=== PATIENT | female | born 1945 | race Caucasian/White ===

== ENCOUNTER 2023-03-21 13:18 | Emergency (ER) | payer MEDICARE ==
[~2023-03-21] VITALS: Ht 160 cm; Wt 108.9 kg
[2023-03-21 14:01] LABS: BASOPHILS 0.6 % (0-2); EOSINOPHILS 0.4 % (0-6); HEMATOCRIT 34.7 % (35.0-50.0); HEMOGLOBIN 11.9 g/dL (12.0-18.0); LYMPHOCYTES 7.3 % (24-44); MCH 32.7 (27-36); MCHC 34.2 g/dl (30-36); MCV 95.5 fl (81-99); MONOCYTES 2.4 % (0-12); NEUTROPHILS 89.3 % (39-80); PLATELET COUNT 245 K/uL (140-440); RBC 3.63 M/ul (4.3-5.7); RDW 13.5 (10.5-15.0)
[2023-03-21 14:17] LABS: INR 3.46 (0.80-1.30); PROTIME 33.5 Sec (11.2-14.2)
[2023-03-21 15:55] VITALS: BP 203/94
== END 2023-03-21 15:39 | disposition home or self-care (01) ==
LOC: ED 13:18
PROVIDERS: Emergency Medicine
DX: S52.514A Nondisplaced fracture of right radial styloid process, initial encounter for closed fracture (principal); S01.511A Laceration without foreign body of lip, initial encounter; I10 Essential (primary) hypertension; Z79.01 Long term (current) use of anticoagulants; Z88.5 Allergy status to narcotic agent; W10.8XXA Fall (on) (from) other stairs and steps, initial encounter
CPT/HCPCS: 36415; 70450; 72125; 73110; 85025; 85610

== ENCOUNTER 2023-03-24 17:09 | Emergency (ER) | payer MEDICARE ==
[~2023-03-24] VITALS: Ht 160 cm; Wt 111.6 kg
--- OUTSIDE RECORDS SUMMARY | 2023-03-24 17:14 | XMS ---
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 Sebastián has no Care Guidelines for this patient. [place] VISIT COUNT (12 MO.) 2 SNEHAL [facility] [place] [address] TOTAL 3 NOTE: Visits indicate total known visits. ED/UCC VISIT TRACKING (12 MO.) 03/24/2023 17:10 [facility] [place] TYPE: Emergency COMPLAINT: - EXTREMITY PAIN RIGHT ARM 03/21/2023 13:[address] [facility] [place] TYPE: Emergency COMPLAINT: - FALL DIAGNOSES: - Allergy status to narcotic agent - Essential (primary) hypertension - Fall (on) (from) other stairs and steps, initial encounter - Laceration without foreign body of lip, initial encounter - termite exterminator helper (current) use of anticoagulants - Nondisplaced fracture of right radial styloid process, initial encounter for closed fracture - Pain in right wrist 01/10/2023 01:55 [facility] [place] TYPE: Emergency INPATIENT VISIT TRACKING (12 MO.) No inpatient visits to display in this time frame [email or web address]
[2023-03-24] MEDS ORDERED: LISINOPRIL10 MG PO (17:45)
[2023-03-24] MEDS ORDERED: PREDNISONE20 MG PO (17:46)
[2023-03-24] MEDS ORDERED: MEMANTINE HCL10 MG PO (17:46)
[2023-03-24] MEDS ORDERED: ATORVASTATIN CA40 MG PO (17:46)
[2023-03-24] MEDS ORDERED: GABAPENTIN300 MG PO (17:46)
[2023-03-24] MEDS ORDERED: HYDROCHLOROTHIA25 MG PO (17:46)
[2023-03-24] MEDS ORDERED: WARFARIN SODIU2.5 MG PO (17:47)
[2023-03-24] MEDS ORDERED: TRAZODONE HCL100 MG PO (17:47)
[2023-03-24] MEDS ORDERED: ATENOLOL50 MG PO (17:47)
[2023-03-24] MEDS ORDERED: OXYBUTYNIN CHLOR5 M1 PO (17:47)
[2023-03-24] MEDS ORDERED: ONDANSETRON ODT4 MG PO (17:59)
[2023-03-24] MEDS ORDERED: HYDROCODON-ACE1 EA10 PO (17:59)
[2023-03-24 18:15] VITALS: BP 191/98
== END 2023-03-24 18:15 | disposition home or self-care (01) ==
LOC: ED 17:09
DX: S62.101A Fracture of unspecified carpal bone, right wrist, initial encounter for closed fracture (principal); X58.XXXA Exposure to other specified factors, initial encounter; I10 Essential (primary) hypertension; I48.91 Unspecified atrial fibrillation; Z88.5 Allergy status to narcotic agent; Z79.01 Long term (current) use of anticoagulants; Z79.899 Other long term (current) drug therapy; Z95.5 Presence of coronary angioplasty implant and graft
CPT/HCPCS: 99283-25